=== PATIENT | male | born 1945 | race Caucasian/White ===

== ENCOUNTER 2018-12-04 07:56 | Day surgery (SDC) | payer OTHER ==
[2018-12-01 11:27] VITALS: BMI 23.5
[2018-12-04] MEDS ORDERED: LIDOCAINE HCL/PF 2% SDV 5ML VIAL ONE (08:02)
[2018-12-04] MEDS ORDERED: PROPOFOL 20 ML ONE ×2 (08:03)
[2018-12-04 08:11] VITALS: TEMP 97.7
[2018-12-04 09:27] VITALS: BP 145/83; PULSE 70
--- NOTE | 2018-12-08 12:15 | PATH ---
Surgical Pathology Report Patient Name: MARY CARMEN [facility]ORT[facility]. Rec. #: [id number] /Age/Gender: 1945 (Age: 73) / M Account: [id number] Location: [facility] Taken: 12/04/2018 Received: 12/04/2018 Reported: 12/08/2018 Physicians: Francis Field M.D. Specimen(s) Received A: POLYP RIGHT COLON X 2 B: POLYPECTOMY LEFT COLON C: POLYP RECTUM Clinical History History of polyps Postoperative diagnosis: Colon polyps, diverticulosis Final Diagnosis A. RIGHT COLON, POLYP (X2), BIOPSY: TUBULAR ADENOMA(S). B. LEFT COLON, POLYP, POLYPECTOMY: TUBULAR ADENOMA. C. RECTUM, POLYP, BIOPSY: HYPERPLASTIC POLYP. Electronically Signed Ava Faulkner M.D. Gross Description A. Received in formalin, labeled "polyp right colon" are 2 wang, irregular portions of soft tissue measuring 0.2 and 0.5 cm. in greatest dimension. The specimens are submitted in toto in one cassette. B. Received in formalin, labeled "left colon" are 2 wang polypoid portions of soft tissue measuring 0.2 and 0.8 cm. in greatest dimension. The larger portion of polypoid tissue is inked black and bisected. The specimens are submitted in toto in two cassettes (with the larger bisected tissue in #1). C. Received in formalin, labeled "polyp rectum" is a wang, irregular portion of soft tissue measuring 0.2 cm. in greatest dimension. The specimen is submitted in toto in one cassette. MLLissetteZ/12/06/2018 makenna/12/06/2018
== END 2018-12-04 09:30 | disposition home or self-care (01) ==
LOC: FASU-ENDO 07:56
PROVIDERS: ATTEND Internal Medicine Gastroenterology
PROC: 0DBP8ZX Excision of Rectum, Via Natural or Artificial Opening Endoscopic, Diagnostic (ICD-10-PCS; 2018-12-04)
PROC: 0DBM8ZX Excision of Descending Colon, Via Natural or Artificial Opening Endoscopic, Diagnostic (ICD-10-PCS; 2018-12-04)
PROC: 0DBK8ZX Excision of Ascending Colon, Via Natural or Artificial Opening Endoscopic, Diagnostic (ICD-10-PCS; principal; 2018-12-04 08:23)
DX: Z86.010 Personal history of colon polyps (principal); D12.2 Benign neoplasm of ascending colon; D12.4 Benign neoplasm of descending colon; K62.1 Rectal polyp
CPT/HCPCS: 88305-TC

== ENCOUNTER 2022-12-10 08:29 | Day surgery (SDC) | payer OTHER ==
[2022-12-05 12:53] VITALS: BMI 20.7
[2022-12-10] MEDS ORDERED: GLYCOPYRROLATE 0.2 MG/1 ML VIAL ONE (10:18)
[2022-12-10] MEDS ORDERED: PROPOFOL 80 ML ONE (10:19)
[2022-12-10 11:03] VITALS: TEMP 96.8
[2022-12-10 11:10] VITALS: RESP 18
[2022-12-10 11:11] VITALS: BP 118/72; PULSE 65
== END 2022-12-10 11:35 | disposition home or self-care (01) ==
LOC: FASU-ENDO 08:29
PROVIDERS: ATTEND Internal Medicine Gastroenterology
PROC: 0DBL8ZX Excision of Transverse Colon, Via Natural or Artificial Opening Endoscopic, Diagnostic (ICD-10-PCS; 2022-12-10)
PROC: 0DBN8ZX Excision of Sigmoid Colon, Via Natural or Artificial Opening Endoscopic, Diagnostic (ICD-10-PCS; 2022-12-10)
PROC: 0DBM8ZX Excision of Descending Colon, Via Natural or Artificial Opening Endoscopic, Diagnostic (ICD-10-PCS; principal; 2022-12-10 09:58)
DX: Z12.11 Encounter for screening for malignant neoplasm of colon (principal); D12.2 Benign neoplasm of ascending colon; D12.3 Benign neoplasm of transverse colon; D12.4 Benign neoplasm of descending colon; D12.5 Benign neoplasm of sigmoid colon; K57.30 Diverticulosis of large intestine without perforation or abscess without bleeding; Z86.010 Personal history of colon polyps; Z98.0 Intestinal bypass and anastomosis status
CPT/HCPCS: 88305-TC

== ENCOUNTER 2023-05-27 08:33 | Day surgery (SDC) | payer OTHER ==
[2023-05-23 12:57] VITALS: BMI 20.3
[2023-05-27 10:12] VITALS: RESP 18; TEMP 97.4
[2023-05-27 10:34] VITALS: BP 120/64; PULSE 68
== END 2023-05-27 10:20 | disposition home or self-care (01) ==
LOC: FASU-ENDO 08:33
PROVIDERS: ATTEND Internal Medicine Gastroenterology
PROC: 0DB68ZX Excision of Stomach, Via Natural or Artificial Opening Endoscopic, Diagnostic (ICD-10-PCS; 2023-05-27)
PROC: 0DB98ZX Excision of Duodenum, Via Natural or Artificial Opening Endoscopic, Diagnostic (ICD-10-PCS; principal; 2023-05-27 09:44)
DX: K29.70 Gastritis, unspecified, without bleeding (principal); K31.9 Disease of stomach and duodenum, unspecified; R11.2 Nausea with vomiting, unspecified; R63.4 Abnormal weight loss
CPT/HCPCS: 88305-TC; 88342-TC

== ENCOUNTER 2024-01-15 07:44 | Day surgery (SDC) | payer OTHER ==
[2024-01-09 15:48] VITALS: BMI 20.7
[2024-01-15] MEDS ORDERED: LIDOCAINE HCL/PF 2% SDV 5ML VIAL ONE (08:04)
[2024-01-15] MEDS ORDERED: PROPOFOL 160 ML ONE (08:04)
[2024-01-15 08:55] VITALS: PULSE 56; RESP 14; TEMP 98.3
[2024-01-15 08:56] VITALS: BP 116/50
== END 2024-01-15 09:20 | disposition home or self-care (01) ==
LOC: FASU-ENDO 07:44
PROVIDERS: ATTEND Internal Medicine Gastroenterology
PROC: 0DB68ZX Excision of Stomach, Via Natural or Artificial Opening Endoscopic, Diagnostic (ICD-10-PCS; 2024-01-15)
PROC: 0DB98ZX Excision of Duodenum, Via Natural or Artificial Opening Endoscopic, Diagnostic (ICD-10-PCS; principal; 2024-01-15 08:26)
DX: K29.50 Unspecified chronic gastritis without bleeding (principal)
CPT/HCPCS: 88305-TC; 88342-TC